=== PATIENT | male | born 1975 | race Caucasian/White ===

== ENCOUNTER 2023-08-30 07:48 | Day surgery (SDC) | payer OTHER ==
[~2023-08-30] VITALS: Ht 177.8 cm; Wt 93.0 kg
[~2023-08-30 07:48] MED LIST: ACETAMINOPHEN325 MG PO; CLONAZEPAM0.5 M1 PO; NAPROXEN500 MG PO; NORVASC5 M1 PO; TYLENOL PM PO
[2023-08-30] MEDS ORDERED: ceFAZolin Sodium 2 GM/VIAL SDV ONE (07:56)
[2023-08-30] MEDS ORDERED: FAMOTIDINE 10MG/ML 2ML SDV IV ONE (07:56)
[2023-08-30] MEDS ORDERED: SODIUM CHLORIDE 0.9% 100 ML IV ONE (07:56)
[2023-08-30] MEDS ORDERED: LACTATED RINGER'S 1,000 ML IV ONE ×3 (07:56→12:21)
[2023-08-30] MEDS ORDERED: LIDOcaine HCl 1% (Local Anesth.) 20 ML VIAL ONE (08:25)
[2023-08-30] MEDS ORDERED: SODIUM CHLORIDE 1,000 ML BTL IR ONE (08:25)
[2023-08-30] MEDS ORDERED: STERILE WATER FOR IRRIGATION 1,000 ML BTL IR ONE (08:25)
[2023-08-30] MEDS ORDERED: PERCOCET 5/321 COMBO PO (10:49)
[2023-08-30] MEDS ORDERED: ACETAMINOPHEN 100 ML IV ONE (10:56)
[2023-08-30] MEDS ORDERED: HYDROmorphone HCL 2 MG/AMP ONE (11:08)
[2023-08-30 12:51] VITALS: BP 147/98
[2023-08-30] MEDS ORDERED: ePHEDrine SULFATE 50 MG/ML AMP IV ONE (14:06)
[2023-08-30] MEDS ORDERED: KETOROLAC TROMETHAMINE 30 MG/ML SDV IV ONE (14:06)
[2023-08-30] MEDS ORDERED: PROPOFOL 200 MG/20 ML VIAL IV ONE (14:06)
[2023-08-30] MEDS ORDERED: ONDANSETRON HCl 4 MG/2 ML SDV IV ONE (14:06)
[2023-08-30] MEDS ORDERED: MIDAZOLAM HCL 2 MG/2 ML VIAL IV ONE (14:06)
[2023-08-30] MEDS ORDERED: LIDOCAINE HCL 2% 2ML SDV IV ONE (14:06)
[2023-08-30] MEDS ORDERED: SUGAMMADEX SODIUM 200 MG/2 ML SDV IV ONE (14:06)
[2023-08-30] MEDS ORDERED: ROCURONIUM BROMIDE 10 MG/ML 5ML VIAL IV ONE (14:06)
== END 2023-08-30 13:12 | disposition home or self-care (01) | DRG 352 ==
LOC: ORM 07:48
PROVIDERS: ATTEND Surgery
PROC: 0YUA4JZ Supplement Bilateral Inguinal Region with Synthetic Substitute, Percutaneous Endoscopic Approach (ICD-10-PCS; principal; 2023-08-30)
DX: K40.20 Bilateral inguinal hernia, without obstruction or gangrene, not specified as recurrent (principal); D17.6 Benign lipomatous neoplasm of spermatic cord; Z87.442 Personal history of urinary calculi
CPT/HCPCS: C1781; J0131; J0690